=== PATIENT | female | born 1955 | race Asian ===

== ENCOUNTER 2019-01-12 08:39 | Emergency (ER) | payer SELFPAY ==
[~2019-01-12] VITALS: Ht 165.1 cm; Wt 68.9 kg
--- NOTE | 2019-01-12 09:10 | NUR ---
PT BROUGHT IN BY PARAMEDICS FROM HOME FOR C/C PAPILTATIONS AND HIGH BLOOD PRESSURE. PT STATES THAT SHE FELT HER HEART RACING, cURRENTLY PT HR NSR AT 94. PT ALERT WITH ORIENTATION X 4 PIV PLACED LABS SENT FOR PROCESSING. WILL CONTINUE TO MONITOR PT SET UP ON LODGING HOUSE KEEPER WELL..
[2019-01-12 09:11] LABS: BASOPHILS # (AUTO) 0.1 /CMM (0.0-0.2); EOSINOPHILS % (AUTO) 3.3 % (0.0-6.0); HEMATOCRIT 49 % (33-45); HEMOGLOBIN 16.2 g/dL (11.5-14.8); LYMPHOCYTES # (AUTO) 1.7 /CMM (0.8-4.8); LYMPHOCYTES % (AUTO) 31.6 % (20.0-44.0); MEAN CORPUSCULAR HGB CONC 33 g/dl (31.0-36.0); MEAN CORPUSCULAR VOLUME 86 fL (82-100); MONOCYTES # (AUTO) 0.3 /CMM (0.1-1.30); MONOCYTES % (AUTO) 6.4 % (2.0-12.0); NEUTROPHILS # (AUTO) 3.1 /CMM (1.8-8.9); NEUTROPHILS % (AUTO) 57.7 % (43.0-81.0); PLATELET COUNT (AUTO) 303 /CMM (150-450); RED BLOOD CELL COUNT(AUTO) 5.65 MIL/uL (4.0-5.2); WHITE BLOOD COUNT (AUTO) 5.3 K/uL (4.3-11.0)
[2019-01-12 09:42] LABS: CALCIUM, SERUM 9.6 mg/dL (8.5-10.1); CARBON DIOXIDE 28 mmol/L (21-32); CHLORIDE 104 mmol/L (98-107); CREATININE 0.6 mg/dL (0.6-1.3); GLUCOSE 173 mg/dL (74-106); POTASSIUM 4.1 mmol/L (3.5-5.1); SODIUM SERUM 140 mmol/L (136-145); UREA NITROGEN, BLOOD 11 mg/dL (7-18)
[2019-01-12 09:59] LABS: ALANINE AMINOTRANSFERASE 47 U/L (12-78); ALBUMIN 4.5 g/dL (3.4-5.0); ALKALINE PHOSPHATASE 107 U/L (46-116); ASPARTATE AMINOTRANSFERASE 30 U/L (15-37); B-TYPE NATRIURETIC PEPTIDE 17 PG/ML (0-125); BILIRUBIN,DIRECT 0.1 mg/dL (0.0-0.2); BILIRUBIN,TOTAL 0.3 mg/dL (0.2-1.0); TOTAL PROTEIN, SERUM 8.7 g/dL (6.4-8.2)
[2019-01-12 10:26] VITALS: BP 140/78
--- NOTE | 2019-01-12 10:30 | NUR ---
PT STABLE WALKING WITH STEADY GAIT ACCOMPANIED BY FRIEND WILL FOLLOW UP WITH PCP PIV REMOVED
== END 2019-01-12 10:31 | disposition home or self-care (01) ==
LOC: ER 08:41
DX: R00.2 Palpitations (principal); R51 Headache; I10 Essential (primary) hypertension; E11.9 Type 2 diabetes mellitus without complications; Z91.013 Allergy to seafood
CPT/HCPCS: 36415; 71045-TC; 80048-TC; 80076-TC; 83880; 84484-TC; 85025-TC; 85730-TC